=== PATIENT | male | born 1955 | race Caucasian/White ===

== ENCOUNTER 2025-02-10 15:23 | Outpatient (CLI) | payer MEDICARE, SELFPAY ==
--- NOTE | 2025-02-10 08:46 | DI.RAD_ITS ---
Exam(s) XR KNEE LT 4V AP,LAT,MANUEL,PAT EXAM: XR KNEE LT 4V AP,LAT,MANUEL,PAT CLINICAL HISTORY: BILATERAL KNEE PAIN. TECHNIQUE: 2D digital imaging was performed. Three views. COMPARISON: No exams were available for comparison FINDINGS: BONES: No acute fracture is present. No bony destructive lesion is seen. JOINTS: Mild medial femoral tibial joint space narrowing. Mild periarticular spurring. Mild spurrin g at the articular aspect of the patella. The patellofemoral joint space is maintained. No joint ef fusion is seen. SOFT TISSUE: Normal. IMPRESSION: Mild degenerative changes of the medial femoral tibial joint. DATA REPOSITORY: RADIATION DOSE DELIVERED:
--- NOTE | 2025-02-10 08:46 | DI.RAD_ITS ---
Exam(s) XR KNEE RT 4V AP,LAT,MANUEL,PAT EXAM: XR KNEE RT 4V AP,LAT,MANUEL,PAT CLINICAL HISTORY: BILATERAL KNEE PAIN. TECHNIQUE: 2D digital imaging was performed. Three views. COMPARISON: CR XR KNEE LT 4V AP,LAT,MANUEL,PAT from 02/10/2025 FINDINGS: BONES: No acute fracture is present. No bony destructive lesion is seen. JOINTS: [id number] narrowing of the medial femoral tibial joint space. Patellofemoral joint sp berlin and lateral femoral tibial joint space are maintained. There is minimal periarticular spurring. No joint effusion is seen. SOFT TISSUE: Normal. IMPRESSION: Mild to moderate narrowing of the medial femoral tibial joint space. DATA REPOSITORY: RADIATION DOSE DELIVERED:
== END 2025-02-10 15:24 | disposition home or self-care (01) ==
LOC: DIORS 15:23
PROVIDERS: Visit Provider Physician Assistant
DX: M25.561 Pain in right knee (principal); M25.562 Pain in left knee; M17.12 Unilateral primary osteoarthritis, left knee; M25.861 Other specified joint disorders, right knee
CPT/HCPCS: 73564

== ENCOUNTER → 2025-02-20 10:06 | Outpatient (BNVA) | payer MEDICARE, SELFPAY | PROVIDERS: Visit Provider Student in an Organized Health Care Education/Training Program | DX: M17.11 Unilateral primary osteoarthritis, right knee (principal); M17.12 Unilateral primary osteoarthritis, left knee | CPT/HCPCS: 20610; J1010 ==

== ENCOUNTER 2025-06-04 10:08 | Outpatient (CLI) | payer MEDICARE, SELFPAY ==
--- NOTE | 2025-06-04 09:45 | DI.RAD_ITS ---
Exam(s) XR STANDING ALIGNMENT EXAM: XR STANDING ALIGNMENT CLINICAL HISTORY: RIGHT KNEE SURGICAL PLANNING. TECHNIQUE: 2D digital imaging was performed. Four images were obtained. COMPARISON: CR XR KNEE LT 4V AP,LAT,MANUEL,PAT from 02/10/2025 CR XR KNEE RT 4V AP,LAT,MANUEL,PAT from 02/10/2025 FINDINGS: BONES: The hips are well maintained. There is marked narrowing of the medial femoral tibial joint of the right knee. There is mild narrowing and spurring seen in the medial femoral tibial joint of the left knee. The ankles are well maintained.There is no significant leg length discrepancy. SOFT TISSUE: Normal. IMPRESSION: Osteoarthritis of the knees, right greater than left. DATA REPOSITORY: RADIATION DOSE DELIVERED:
== END 2025-06-04 10:09 | disposition home or self-care (01) ==
LOC: DIORS 10:08
PROVIDERS: Visit Provider Student in an Organized Health Care Education/Training Program
DX: M17.0 Bilateral primary osteoarthritis of knee (principal); Z98.890 Other specified postprocedural states
CPT/HCPCS: 99214; 77073

== ENCOUNTER → 2025-07-09 08:44 | Outpatient (BNVA) | payer MEDICARE, SELFPAY | PROVIDERS: Visit Provider Student in an Organized Health Care Education/Training Program | DX: M17.0 Bilateral primary osteoarthritis of knee (principal) | CPT/HCPCS: 99213 ==

== ENCOUNTER 2025-08-18 15:50 | Outpatient (REF) | payer MEDICARE, SELFPAY ==
[2025-08-18 18:11] LABS: HCT 46.1 % (40.0-50.0); HGB 15.8 g/dL (13.5-17.5); MCH 33.6 pg (27.0-33.0); MCHC 34.3 % (32.0-36.0); MCV 98 fL (80-95); MPV 9.7 fL (8.0-11.0); Platelet Count 203 10^3/uL (130-400); RBC 4.70 10^6/uL (4.36-5.78); RDW 11.8 % (11.8-14.1); RDW-SD 42.6 fL; WBC 9.06 10^3/uL (4.4-10.8)
[2025-08-18 18:32] LABS: Anion Gap 9.1 mmol/L (3-11); BUN 19 mg/dL (7-18); CO2 25.9 mmol/L (21.0-32.0); Calcium 9.6 mg/dL (8.5-10.1); Chloride 104 mmol/L (98-107); Estimated GFR 59.47 (mL/min/1.73m2); Glucose 99 mg/dL (74-106); Potassium 4.3 mmol/L (3.5-5.1); Sodium 139 mmol/L (136-145)
== END 2025-08-18 15:51 | disposition home or self-care (01) ==
LOC: LBN 15:50
PROVIDERS: Visit Provider Student in an Organized Health Care Education/Training Program
DX: Z01.818 Encounter for other preprocedural examination (principal); M17.11 Unilateral primary osteoarthritis, right knee
CPT/HCPCS: 80048; 85027

== ENCOUNTER 2025-08-29 05:55 | Day surgery (SDC) | payer MEDICARE, SELFPAY ==
[2025-08-29] VITALS (17 sets, daily range): BP systolic 102–137; BP diastolic 68–92; PULSE 51–74; RESP 0–18; TEMP 36.4–37.1; O2SAT 95–100; BMI 25.1
[2025-08-29] MEDS: Celecoxib 200 MG CAP 400 MG PO (06:08)
[2025-08-29] MEDS: Acetaminophen 500 MG TAB 1000 MG PO (06:08)
[2025-08-29] MEDS: Gabapentin 300 MG CAP PO (06:08)
--- NOTE | 2025-08-29 06:21 | W.ANESPRE ---
General Info Date of Service Date Performed: 08/29/25 Height: 5 ft 8 in Weight: 75 kg Body Mass Index (BMI): 25.1 Surgical Procedure: Operation Date: 08/29/25 07:40 Proposed Procedure Side Surgeon p Knee Total Arthroplasty Right Cristofer Lewis MD Meds Allergies and Home Medications Allergies Allergy/AdvReac Type Severity Reaction Status Date / Time tree and shrub pollen Allergy Intermediate Other (See Verified 08/29/25 06:03 Comment) Home Medication ?Medication ?Instructions ?Recorded ezetimibe 10 mg tablet (Zetia) 10 mg PO DAILY 08/28/24 rosuvastatin 5 mg tablet (Crestor) 5 mg PO DAILY 08/28/24 lansoprazole 30 mg capsule,delayed 30 mg PO DAILY 08/18/25 release levetiracetam 750 mg tablet 750 mg PO BID 08/18/25 (Keppra) mometasone-formoterol HFA 200 2 puff inhalation BID 08/18/25 mcg-5 mcg/actuation aerosol inhaler (Dulera) acetaminophen 500 mg tablet 1,000 mg (2 x 500 mg) PO TID #90 08/29/25 tabs aspirin 81 mg tablet,delayed 81 mg PO BID #60 tabs 08/29/25 release celecoxib 200 mg capsule 200 mg PO BID #60 caps 08/29/25 dexamethasone 4 mg tablet 4 mg PO DAILY #2 tabs 08/29/25 docusate sodium 100 mg capsule 100 mg PO BID PRN #28 caps 08/29/25 gabapentin 300 mg capsule 300 mg PO QHS #14 caps 08/29/25 oxycodone 5 mg tablet 5 mg PO Q4H PRN #18 tabs 08/29/25 pantoprazole 40 mg tablet,delayed 40 mg PO DAILY #14 tabs 08/29/25 release Current Visit Medications: Current Medications Generic Name Dose Route Start Last Admin Trade Name Freq PRN Reason Stop Dose Admin Acetaminophen 1,000 mg 08/29/25 06:00 08/29/25 06:08 Acetaminophen 500 Mg Tab PO 08/29/25 23:59 1,000 mg PREOP JOSE Administration Celecoxib 400 mg 08/29/25 06:00 08/29/25 06:08 Celecoxib 200 Mg Cap PO 08/29/25 23:59 400 mg PREOP JOSE Administration Gabapentin 300 mg 08/29/25 06:00 08/29/25 06:08 Gabapentin 300 Mg Cap PO 08/29/25 23:59 300 mg PREOP JOSE Administration Ringer's Solution 1,000 mls @ 80 mls/hr 08/29/25 06:00 IV 08/29/25 23:59 INFUSION JOSE Cefazolin Sodium/Dextrose 2 gm in 50 mls @ 100 mls/hr 08/29/25 06:00 Ancef Duplex IVPB 08/29/25 23:59 PREOP JOSE Tranexamic Acid/Sodium Chloride 1,000 mg in 100 mls @ 600 mls/hr 08/29/25 06:00 IVPB 08/29/25 23:59 PREOP JOSE IV Miscellaneous Supplies 1 each 08/29/25 06:00 Iv Access IV 08/29/25 23:59 DIRECTED JOSE Sodium Chloride 0 ml 08/29/25 06:00 Normal Saline Flush 10 Ml Syr IV 08/29/25 23:59 PRN PRN Sodium Chloride 0 ml 08/29/25 06:00 Normal Saline 10 Ml Vial IJ 08/29/25 23:59 DIRECTED PRN Sterile Water 0 ml 08/29/25 06:00 Water,Injection,Sterile 10 Ml Vial IJ 08/29/25 23:59 DIRECTED PRN PFSH Active Problems Active Problems: Problem Status Onset Code Chronic kidney disease, stage 3a Acute N18.31 GERD (gastroesophageal reflux disease) Chronic K21.9 Hypercholesteremia Acute E78.00 Mild persistent asthma Acute J45.30 Bilateral primary osteoarthritis of knee Acute M17.0 Medical History Medical History Elevated serum creatinine 24 hour urine normal per PCP notes Seizure disorder last seizure 2014 per PCP notes Tobacco Smoking/Tobacco Use Status: Never Passive smoking exposure: No Alcohol Alcohol Intake: current Alcohol intake frequency: a few times a week Substance Use Substance use: Never Substance use type: does not use Vital Signs and Lab Results Vital Signs Most Recent Vital Signs in EMR: Most Recent Vital Signs Temp Pulse Resp BP Pulse Ox 36.4 C L 56 L 16 125/87 100 08/29/25 06:04 08/29/25 06:04 08/29/25 06:04 08/29/25 06:04 08/29/25 06:04 Lab Results Complete Blood Count: WBC, (4.4-10.8) 9.06 10^3/uL 08/18/25, 14:45 RBC, (4.36-5.78) 4.70 10^6/uL 08/18/25, 14:45 Hgb, (13.5-17.5) 15.8 g/dL 08/18/25, 14:45 Hct, (40.0-50.0) 46.1 % 08/18/25, 14:45 Plt Count, (130-400) 203 10^3/uL 08/18/25, 14:45 Complete Metabolic Panel: Sodium, (136-145) 139 mmol/L 08/18/25, 14:45 Potassium, (3.5-5.1) 4.3 mmol/L 08/18/25, 14:45 Chloride, (98-107) 104 mmol/L 08/18/25, 14:45 Carbon Dioxide, (21.0-32.0) 25.9 mmol/L 08/18/25, 14:45 BUN, (7-18) 19 mg/dL H 08/18/25, 14:45 Creatinine, (0.70-1.30) 1.3 mg/dL 08/18/25, 14:45 Est GFR (CKD-EPI 2020), (mL/min/1.73m2) 59.47 08/18/25, 14:45 Calcium, (8.5-10.1) 9.6 mg/dL 08/18/25, 14:45 Glucose, (74-106) 99 mg/dL 08/18/25, 14:45 Anesthesia Assessment and Plan Anesthesia History Personal History: No History of Anesthesia Complications Family History: No Family History of Anesthesia Complications Exercise Tolerance Exercise Tolerance: Metabolic Equivalents>4 Pertinent Negatives Pertinent Negatives: No Symptoms of GERD Cardiac & Pulmonary Exam Cardiac Exam: Normal S1/S2 Heart Sounds Pulmonary Exam: Clear Bilateral Breath Sounds Implantable Cardiac Device Does patient have a Pacemaker or an ICD?: No Airway Exam Known Difficult Airway: No Mallampati Class: 2 Mouth Opening: Normal (> 3cm) Thyromental Distance: Greater than 3 cm Neck Range of Motion: Full ROM Neck Circumference: Normal Teeth Condition: Normal Dentition ASA Classification ASA Score: ASA 2 Emergency Case?: No NPO Status NPO Status: NPO Clears >2 hours, Solids >8 hours Anesthesia Plan Resuscitation Status: Full Code Anesthesia Technique: Spinal Anesthesia Airway Planned: Natural Airway Pain Management: Surgeon and patient request nerve block Monitors Used: Standard Monitors
[2025-08-29] MEDS: Lactated Ringers 1,000 ML 80 ML IV (06:38)
--- NOTE | 2025-08-29 07:07 | W.PM.DSUDISC ---
Date of service: 08/29/25 Discharge Plan Disposition Patient Disposition: Home Condition: Good Discharge Details Reason For Visit: R TKR Attending Provider: Cristofer Lewis Primary Care Provider: Qing,Local Home Meds and New Rx's Prescriptions: New acetaminophen 500 mg tablet 1,000 mg PO TID Qty: 90 3RF aspirin 81 mg tablet,delayed release (DR/EC) 81 mg PO BID Qty: 60 0RF celecoxib 200 mg capsule 200 mg PO BID Qty: 60 0RF dexamethasone 4 mg tablet 4 mg PO DAILY Qty: 2 0RF docusate sodium 100 mg capsule 100 mg PO BID PRNQty: 28 0RF pantoprazole 40 mg tablet,delayed release (DR/EC) 40 mg PO DAILY Qty: 14 0RF gabapentin 300 mg capsule 300 mg PO QHS Qty: 14 0RF oxycodone 5 mg tablet 5 mg PO Q4H PRNQty: 18 0RF Continued ezetimibe [Zetia] 10 mg tablet 10 mg PO DAILY rosuvastatin [Crestor] 5 mg tablet 5 mg PO DAILY lansoprazole 30 mg capsule,delayed release(DR/EC) 30 mg PO DAILY levetiracetam [Keppra] 750 mg tablet 750 mg PO BID Dulera 200-5 mcg/actuation HFA aerosol inhaler 2 puff inhalation BID Discontinued celecoxib 200 mg capsule 200 mg PO DAILY PRN (Reason: pain) Qty: 90 0RF Discharge Instructions Additional Instructions: Total Knee Discharge Instructions Activity: The most important activity is to walk and to work on gentle motion (both flexion and extension). You should try to take short walks a few times a day. It is important that when resting you work on keeping the knee straight. Avoid putting a pillow behind the knee as this will encourage flexion. Work on range of motion exercises as provided by Physical Therapy. - Start outpatient physical therapy within 2 weeks. - You should wear the VÍCTOR hose on both legs for 2 weeks. You may remove these at night. You may also use any compression sock in place of the VÍCTOR hose. - Utilize [employer] to review exercises, see videos on exercises and obtain basic information pertaining to your surgery and your recovery. Dressing: Remove the Charlie wrap by 2 days after your surgery and put on the VÍCTOR stocking given to you from the hospital. Keep the surgical dressing (underneath the CHARLIE wrap) in place for at least one week. After the first week it may be removed and replaced with light gauze and tape or nothing. The wound and dressing may get wet after 3 days but avoid soaking the dressing or otherwise it will need to be changed. Many people prefer covering the dressing with cling wrap (saran wrap) to minimize it from getting soaked. If it gets wet, just pat dry. If it starts to peel off then it will need to be changed. Medications: - You should take Tylenol and anti-inflammatory Celebrex as your primary pain control medications. If the Celebrex is too expensive or not covered, please call the office for another alternative (Advil/Ibuprofen or Naproxen/Aleve) - You have been prescribed a stronger pain medication Oxycodone for breakthrough pain, take as needed as prescribed. - You have also been prescribed a stomach acid reduction agent Pantoprozole to help reduce stomach acid and reflux. - You have been prescribed Gabapentin to take at night for restlessness and nerve pain. - You will be taking Aspirin 81mg twice a day for DVT prevention unless instructed otherwise. - You have also been prescribed Decadron to take to control post-operative nausea and pain. You will start this tomorrow. - If you have constipation you should take Colace or Miralax (both [id number]). It takes most people 3-4 days to have a bowel movement. Follow-up: 2 weeks If you have any acute concerns or questions, please do not hesitate to contact the office at [phone]. You may contact Dr. Lewis with any questions after hours through the hospital at [phone] or on his cell phone at [phone]. Referrals: Cristofer Lewis MD [ [facility] STAFF PHYSICIAN, Orthopaedic Surgical] Equipment/Supplies: Walker Activity:: Activity as Tolerated Shower/Bathe:: 72 hours Diet:: As Tolerated Discharge Orders Discharge Orders: Discharge Order (Routine); Ordered 08/29/25 Ordered By: Warren Dukes DS: Diagnosis Discharge Diagnosis (1) Bilateral primary osteoarthritis of knee: Status: Acute
--- NOTE | 2025-08-29 07:22 | W.PM.OP ---
Operative Note Operative Note PRE-OP DIAGNOSIS: RIGHT Knee Osteoarthritis POST-OP DIAGNOSIS: same PROCEDURE: Right Total Knee Replacement SURGEON: Cristofer Lewis GAMMA FACILITIES OPERATOR: Deep Dukes ANESTHESIA TYPE: Spinal Refer to Anesthesia Record ESTIMATED BLOOD LOSS: 100 PATHOLOGY: none sent TOURNIQUET TIME: 0 COMPLICATIONS: None Patient was transported to: PACU Patient's condition: stable Implants: 1. Depuy Attune Cementless Cruciate Retaining Femoral Component, Size 8 2. Depuy Attune Cementless Fixed Bearing Tibial Component, Size 8 3. Depuy Attune 8x8mm CR/FB Poly Indications: I have seen Deep in clinic for symptoms of knee arthritis, confirmed with radiographic findings. He has exhausted nonoperative methods and was having significant limitations in daily function and desired better function and less pain. I discussed the technical details of a knee replacement. I explained the risks of the procedure to include, but not limited to, bleeding, infection, pain, stiffness, fracture, damage to nerves and vessels, damage to muscles and tendons, loosening, need for repeat procedure, blood clot and cardiopulmonary demise. Despite these risks, Deep elected to proceed. Findings: There was significant signs of arthritis throughout the knee. Procedure Description: Deep was greeted in the preoperative holding area where the correct side was identified and marked. The consent was reviewed with the patient and signed. The history and physical was updated. All questions were answered. Preoperative medications were administered: Acetaminophen 1000mg, Celebrex 400mg, and Gabapentin 300mg. An adductor canal block was then administered by the anesthesia team in the DSU. Deep was taken back to the operating room. A spinal anesthestic was then administered. The patient was placed into the supine position on the operating room table. Posts were placed for positioning during the procedure. All bony prominences were well padded. Prophylactic antibiotics in the form of Cefazolin were administered. 1g of Tranxemic Acid was given intravenously within 30 minutes of incision. The right leg was then prepped with Chloraprep and draped in a standard fashion with impervious stockinette. A second prep with Chloraprep was performed prior to application of Iodine impregnated skin protection. A timeout to confirm correct identity, side and site, procedure, allergies, anesthesia, and medical concerns was performed. With the knee in some flexion, a midline incision was made overlying the knee. Full thickness skin flaps were raised once the extensor mechanism was encountered. These were raised medially and laterally. Any bleeding was controlled with electrocautery. Once the extensor mechanism was fully exposed, a medial parapatellar arthrotomy was performed in a flexed position. All bleeding from the arthrotomy and the geniculate arteries was coagulated. A medial subperiosteal peel was performed with electrocautery to the midcoronal plane. The fat pad was removed while keeping the patellar tendon protected. The anterior distal femur synovium was removed for later visualization. The ACL and PCL were resected and the anterior horn of the lateral meniscus was transected. The knee was then flexed with the patella everted. Large osteophytes from the tibia were removed. Large osteophytes from the femur were removed. Using a step drill, and based on preoperative templating, the femoral canal was entered. This was done with a step drill without any difficulty. The intramedullary distal femoral cut guide was inserted, set to a 6 degree valgus cut and 9mm cut thickness. The distal femoral cut guide was then held in position and pinned. With the soft tissues protected, the distal cut was performed. This was passed over a few times to ensure a planar cut. I then turned attention to the tibia. The extramedullary guide was placed onto the leg. The distal aspect was slid medial to adjust for position of center of ankle and stay in line with shaft of the tibia. Approximately 5 degrees of posterior slope was kept in the proximal cutting guide. The center of the guide was aligned with the PCL. The stylus was used to assess cut thickness. The medial side, most involved side, was set for a 5mm cut. This was then held in position and pinned into place with 2 additional pins and a cross pin for stability. The medial and lateral collateral ligaments were protected and the cut was performed. With this completed, it was assessed and noted to be of appropriate dimensions. The guide was removed. A spacer block was inserted and the knee was brought into extension. The 7mm spacer block provided full extension, without hyperextension and with stability of both the medial and lateral collateral ligaments was assessed. The pins from the femur and the tibia were then removed. The distal femur was then sized. The anterior stylus was placed onto the lateral ridge of the anterior femur. This indicated a size 8 femur. The external rotation of the guide was adjusted to 3 degrees to match the epicondylar axis, perpendicular to Yessica?s line. The 4-in-1 cutting guide was the placed. The posterior medial femur cut was evaluated and appeared of good thickness. The spacer block was inserted underneath the cutting guide and stability was confirmed in 90 degrees of flexion. An betina wing was used to confirm appropriate position of the anterior cut to avoid notching. This cutting guide was ensured to be flush on the cut surface and then pinned into place with headed pins. While protecting the soft tissues, quad tendon, and collateral ligaments, the anterior and posterior cuts were performed with a saw. The central two pins were removed and the posterior and anterior chamfers were cut next. The notch-cutting guide was placed. This was pinned to lateralize the femoral component as much as possible while keeping it flush on the cut surface. This was then pinned into position. A reciprocating saw was used to make the notch cut. A rasp smoothed the cut surfaces. The medial and lateral menisci were removed. A trial femoral component was then inserted, impacted down to the cut surfaces, and the lug holes were drilled. A provisional trial tibial component was placed and the knee was brought through range of motion. The polyethylene was trialed until there was good flexion and extension with excellent stability to the medial and lateral collaterals. The patella was tracking without thumbs. A size 8mm polyethylene component provided the best range of motion and stability with less than 2mm gapping with medial and lateral stress and full extension without significant hyperextension. The tibial cut surface was fully exposed. The tibia was then sized as a 8. The tibia had been previously marked during trialing to correspond to the center of the tibial component to help with rotation. The trial was aligned to this deep, approximately rotated to the medial 1/3rd of the tibial tubercle. The trial was pinned into place. The tibia was prepared with a reamer and a keel punch and lug holes. There was some wear of the cartilage over the medial facet but without significant defect. The patella was tracking perfectly within the trochlear groove and therefore I did not resurface the patella. The trial components were removed. The final components were opened on the back table. The periosteal and capsular tissues, especially posteriorly, around the knee were then systematically injected with a periarticular cocktail consisting of 246mg of Ropivacaine, 0.5mg of Epinephrine, 0.08mg of Clonidine, and 30mg of Ketorolac, diluted to 100cc. On the back table, with the implants opened. The cementless knee components were placed. Starting with the tibial component, the tibia was subluxed anteriorly and the lug holes of the component were lined up. The tibia was then impacted with an impactor and mallet until the tibial component was in contact with the tibia. Then, the femoral component was inserted. The lug holes were aligned and the component was impacted into position. The final polyethylene component was inserted. The knee was irrigated with Surgiphor Betadine solution. This was allowed to sit in the knee for 3 minutes and then it was irrigated out with saline. The patella was tracking with a no-thumbs technique. A complete synovectomy was performed around the periphery of the patella. A lateral facetectomy was also performed. The capsule was then reapproximated with a No. 1 Vicryl at multiple locations. The capsule was finally closed with a No. 2 Stratafix, barbed suture. Deep tissues were then reapproximated with 0 Vicryl and 2-0 Vicryl. The skin was closed with a running 3-0 Monocryl in a subcuticular fashion. This was reinforced with skin glue. A Mepilex silver dressing was applied along with a [id number] ALCIDES wrap. A CryoCuff was applied. Deep was transferred to the hospital bed without difficulty an suffering no apparent complication. Deep has a good prognosis. Physical therapy will start today and without restrictions, weight-bearing as tolerated. Aspirin 81mg BID will be used for DVT prophylaxis. Date of Procedure: 08/29/25
[2025-08-29] MEDS: ceFAZolin 2 GM/50 ML BAG IVPB (07:30)
[2025-08-29] MEDS: TRANEXAMIC ACID/SOD. CHL. 1,000 MG/100 ML BAG 600 MG IVPB (07:45)
--- NOTE | 2025-08-29 07:56 | W.ANESNERVE ---
Nerve Block Single Injection Procedure Date and Time Date Performed: 08/29/25 Procedure Start: 07:56 Location Where Procedure Performed Procedure Location: Day Surgery Unit Reason Performed: Postoperative Analgesia Requesting Provider: Cristofer Lewis Timeout Performed Timeout Performed: Yes Monitoring Used ECG, Blood Pressure, SpO2 and See EMR for corresponding vital signs Sterility Sterility: Hand Hygiene, Surgical Cap, Surgical Mask, Sterile Gloves and Chlorhexidine Sedation Given During Procedure Sedation Given (Indicate Dose Given): No Sedation given Patient Mental Status Patient Mental Status: Awake Nerve Block 1st Nerve Block: Laterality: Right Block Type: Adductor Canal Ultrasound Image Saved?: Yes Needle / Catheter Used: 100mm SonoPlex II Local Anesthetic Bolus (Indicate Dose Given): Lidocaine used for local infiltration of skin, Injected in 3-5ml increments after negative blood aspiration, Bupivacaine 0.25% Dose:: 10ml and Exparel Dose:: 10ml Additives (Indicate Dose Given): None Ultrasound: Sterile probe cover and gel used Nerve Stimulator: Supplement to Ultrasound use and No twitch or parasthesia noted < 0.5 mA Paresthesia: None Procedure Tolerated: No Complications and Patient tolerated well Procedure Outcome: Successful Performed By: Vasu Wheeler
[2025-08-29] MEDS: Tranexamic Acid 650 MG TAB 1300 MG PO (10:18)
--- NOTE | 2025-08-29 11:10 | IN_ITS ---
PT Notes Visit Reasons: R TKR Physical Therapy Day Surgery Initial Evaluation Date: 08/29/25 Referring Doctor: DOUGLAS Stewart PT Orders: PT CONSULT Precautions: standard Patient Profile/Admitting Diagnosis: Warren is an active and independent 70 year old with right knee OA, now s/p right TKA, post op day #0. Social History/Home Situation: Lives in a private multilevel home with 3 [address], rail on right side. Normally independent without device, and active with hiking, weight lifting, cycling. Equipment Owned/DME: none Subjective: Warren is agreeable to PT consult. States that pain is well managed. Objective: General Observation: Resting in bed with RLE elevated, ALCIDES wrap and cryocuff in place. Mental Status: A&Ox3. Pleasant and cooperative throughout. Pain: well maanged ROM: Right Upper Extremity: WFL Left Upper Extremity: WFL Right Lower Extremity: Demonstrates 0-110* knee flexion actively Left Lower Extremity: WFL Strength: Right Upper Extremity: WFL Left Upper Extremity: WFL Right Lower Extremity: Able to perform SLR without extension lag. Left Lower Extremity: WFL Sensation: intact distally Bed Mobility/Transfers: Supine to sit : supervision Sit to stand : CGA initially, progressing to supervision. Requires min cues for hand placement and technique, with good carryover Stand to sit : supervision, cues for technique Bed to chair : supervision with FWW Gait: Ambulates 75'x2, FWW, supervision. Stairs: manages therapeutic stairs x 2, 4x3, 6x2 with bilat rails and min cues for technique. Good safety awareness throughout. Balance: Static Sitting: normal Dynamic Sitting: normal Static Standing: good Dynamic Standing: fair Special Tests: Mobility Limitations Standardized Measure [facility] AM-PAC 6 clicks Basic Mobility Inpatient Short Form: Raw Score: 24 CMS Score: 0% Informed Consent/Education: Patient instructed in purpose of PT consult. Packet containing [] exercise protocol has been given to patient. Education and training on initial set of exercises that can be done at home have been completed with patient. Treatment: Initial evaluation (09582) Therapeutic exercises (86317): Instructed in the following postop exercises: Ankle pumps 10 times Quad sets 10 times Glutes sets 10 times Heel slides 10 times SLR 10 times Passive extension hang x 3 minutes Instructed in equipment management, and fitted walker to patient's height. Instructed in stair management and transfer technique, all with excellent carryover. Assessment: Patient presents with clinical signs and symptoms consistent with postop status that have resulted to mobility limitations, gait instability, generalized weakness, and impairment of motor control as demonstrated by the following impairment level findings: 1. Decreased strength to right knee major muscle groups 2. Impaired standing balance 3. Limitation of joint range of motion in right knee 4. Gait impairments Impairments are contributing to the following functional limitations: 1. Inability to safely ambulate without assistive device 2. Increase completion time for mobility ADL performance 3. Increased fall risk Patient is assessed as low complexity based on the following: History: asabove Examination: Demonstrable impairment in strength, balance, and mobility level with underlying impairments and functional limitations as documented above Presentation: Stable Decision Making: Low Goals: N/A. PT evaluation and 1-2 treatment sessions only for functional mobility training using recommended AD and for HEP instruction. Plan of Care/Treatment Plan: N/A. PT evaluation and 1-2 treatment session only for functional mobility training using recommended AD and for HEP instruction. DISCHARGE RECOMMENDATIONS: Appropriate for discharge home with FWW TREATMENT CODE/TIME: 12609, [id number] ([id number]) Thank you for the opportunity to participate in the care of this patient. Thao Vanessa, PT, DPT [facility] Please sign an return this page within 30 days if you agree with the above POC. Thank you! Physician Signature Date [facility] All Active Problems Chronic kidney disease, stage 3a (Acute) GERD (gastroesophageal reflux disease) (Chronic) Hypercholesteremia (Acute) Mild persistent asthma (Acute) Bilateral primary osteoarthritis of knee (Acute) Steroid injection bilaterally: 02/20/2025 Medical History Elevated serum creatinine 24 hour urine normal per PCP notes Seizure disorder last seizure 2014 per PCP notes
[2025-08-29] MEDS: oxyCODONE 5 MG TAB PO (11:26)
--- NOTE | 2025-08-29 11:58 | W.ANESPOSTOP ---
Postoperative Evaluation Date, Time and Location Date Performed: 08/29/25 Time Performed: 13:13 Patient Location: Day Surgery Unit Vital Signs Most Recent Imported Vital Signs: Most Recent Vital Signs Temp Pulse Resp BP Pulse Ox 36.7 C 59 L 16 137/92 H 98 08/29/25 10:18 08/29/25 11:52 08/29/25 11:52 08/29/25 11:52 08/29/25 11:52 Pain Score Most Recent Pain Score: Most Recent Pain Score Pain Level 0 08/29/25 10:18 Assessment Mental Status: Awake (Alert & Oriented to Patient Baseline) Airway and Respiratory Function: Patent airway with normal (patient baseline) respiratory exam Cardiovascular Function: Hemodynamically Stable Hydration Status: Adequately Hydrated Nausea & Vomiting: No Nausea or Vomiting Pain: Pt. Denies Any Pain Peripheral Nerve Block: Patient did not receive a nerve block
== END 2025-08-29 12:12 | disposition home or self-care (01) ==
PROVIDERS: Visit Provider Student in an Organized Health Care Education/Training Program
PROC: (CPT 27447; principal; 2025-08-29 07:30)
DX: M17.11 Unilateral primary osteoarthritis, right knee (principal); G89.18 Other acute postprocedural pain
CPT/HCPCS: 27447; 64447; 97110; 97161; C1776; J0665; J0666; J0690; J1100; J2250; J2371; J2405; J2704

== ENCOUNTER 2025-09-12 11:49 | Outpatient (CLI) | payer MEDICARE, SELFPAY ==
--- NOTE | 2025-09-12 08:30 | DI.RAD_ITS ---
Exam(s) XR STANDING ALIGNMENT XR KNEE RT 1V EXAM: XR STANDING ALIGNMENT CLINICAL HISTORY: 1ST POST OP S/P R TKA. TECHNIQUE: 2D digital imaging was performed. Standing AP views were performed from the pelvis through the ankles. COMPARISON: CR XR STANDING ALIGNMENT from 06/04/2025 CR XR KNEE RT 1V from 09/12/2025 FINDINGS: BONES: No acute fracture is present. No bony destructive lesion is seen. Leg length discrepancy: No significant overall leg length discrepancy. JOINTS: Knees: Status post placement right knee prosthesis. The alignment appears satisfactory. There is mild medial femoral tibial joint space narrowing in the left knee. The ankle joints are unremarkable. The hip joints are unremarkable. SOFT TISSUE: Normal. IMPRESSION: Status post placement of right knee prosthesis. Mild degenerative changes of the left knee. No significant leg length discrepancy. DATA REPOSITORY: RADIATION DOSE DELIVERED:
== END 2025-09-12 11:50 | disposition home or self-care (01) ==
LOC: DIORS 11:49
PROVIDERS: Visit Provider Physician Assistant
DX: Z47.1 Aftercare following joint replacement surgery (principal); Z96.651 Presence of right artificial knee joint
CPT/HCPCS: 99024; 73560; 77073

== ENCOUNTER → 2025-10-06 13:52 | Outpatient (BNVA) | payer MEDICARE, SELFPAY | PROVIDERS: Visit Provider Student in an Organized Health Care Education/Training Program | DX: Z47.1 Aftercare following joint replacement surgery (principal); Z96.651 Presence of right artificial knee joint | CPT/HCPCS: 99024 ==